=== PATIENT | male | born 1995 | race American Indian/Alaskan Native ===

== ENCOUNTER 2017-11-03 13:26 | Emergency (ER) | payer BC, MEDICAID ==
[2017-11-03 14:05] VITALS: BP 113/76; PULSE 99; RESP 18; TEMP 98.6; O2SAT 100
--- NOTE | 2017-11-03 15:08 | ED PDOC ---
HPI: Male Pain Time Seen by Provider: 11/03/17 14:52 Chief Complaint (Nursing): Male Genitourinary Past Medical History Vital Signs: Last Vital Signs Temp 98.6 F 11/03/17 14:02 Pulse 99 H 11/03/17 14:02 Resp 18 11/03/17 14:02 BP 113/76 11/03/17 14:02 Pulse Ox 100 11/03/17 14:02 - Medical History PMH: Asthma - Home Medications Home Medications: Ambulatory Orders Medication Instructions Recorded Ibuprofen [Motrin] 600 mg PO Q6 PRN #20 tab 08/17/14 Ciprofloxacin [Cipro] 500 mg PO BID #10 tab 11/03/17 - Allergies Allergies/Adverse Reactions: Allergies Allergy/AdvReac Type Severity Reaction Status Date / Time NUTS Allergy RASH Uncoded 11/03/17 14:01 peas Allergy SWELLING Uncoded 11/03/17 14:05 - ECG O2 Sat by Pulse Oximetry: 100 Disposition - Clinical Impression Clinical Impression: UTI (urinary tract infection) - Patient ED Disposition Is Patient to be Admitted: No Counseled Patient/Family Regarding: Diagnosis, Need For Followup, Rx Given - Disposition Disposition: Routine/Home Disposition Time: 15:03 Condition: GOOD Prescriptions: Ciprofloxacin [Cipro] 500 mg PO BID #10 tab Instructions: Urinary Tract Infections in Adults
[2017-11-03 15:31] LABS: URINE BACTERIA RARE (<OCC); URINE BILIRUBIN NEGATIVE (NEGATIVE); URINE BLOOD MODERATE (NEGATIVE); URINE CLARITY CLOUDY (Clear); URINE COLOR YELLOW (YELLOW); URINE GLUCOSE (UA) NEG (Normal); URINE LEUKOCYTE ESTERASE LARGE Leu/uL (Negative); URINE PROTEIN NEGATIVE (NEGATIVE); URINE UROBILINOGEN 0.2-1.0 mg/dL (0.2-1.0)
== END 2017-11-03 15:07 | disposition home or self-care (01) ==
LOC: H.ER 13:26
DX: N39.0 Urinary tract infection, site not specified (principal)